=== PATIENT | female | born 2000 | race African-American/Black ===

== ENCOUNTER 2018-07-01 16:04 | Emergency (ER) | payer OTHER ==
[~2018-07-01] VITALS: Ht 157.5 cm; Wt 57.6 kg
[~2018-07-01 16:04] MED LIST: NAFTIN40 GM TP; NOHOMEMEDICATIONS; TOBRAMYCIN SULFA5 ML OP
[2018-07-01] MEDS ORDERED: BUTALB-APAP-CA1 EACH PO (17:16)
[2018-07-01 17:37] VITALS: BP 111/74
== END 2018-07-01 17:36 | disposition home or self-care (01) ==
LOC: ER 16:04
DX: G43.909 Migraine, unspecified, not intractable, without status migrainosus (principal)